=== PATIENT | female | born 1995 | race Caucasian/White ===

== ENCOUNTER 2023-06-17 10:52 | Outpatient (CLI) | payer BC | END 2023-06-17 10:53 | disposition home or self-care (01) | LOC: BICULT 10:52 | PROVIDERS: ATTEND Obstetrics & Gynecology | DX: N63.20 Unspecified lump in the left breast, unspecified quadrant (principal) ==

== ENCOUNTER → 2023-06-23 | Day surgery (SDC) | payer BC | LOC: BICULT 12:27 | PROVIDERS: ATTEND Obstetrics & Gynecology | PROC: 0H9 Skin and Breast, Drainage (ICD-10-PCS; principal; 2023-06-23) | DX: D24.2 Benign neoplasm of left breast (principal) | CPT/HCPCS: 19083; 88305 ==